=== PATIENT | female | born 1955 | race Caucasian/White ===

== ENCOUNTER 2020-11-25 10:03 | Emergency (ER) | payer OTHER ==
[~2020-11-25] VITALS: Ht 162.6 cm; Wt 58.5 kg
[2020-11-25 10:14] VITALS: BP 128/62
[2020-11-25] MEDS ORDERED: CEPH500C2 PO (10:25)
[2020-11-25] MEDS ORDERED: CIPR5DRO EACHEYE (10:25)
== END 2020-11-25 10:42 | disposition home or self-care (01) ==
LOC: ER 10:14
DX: H00.012 Hordeolum externum right lower eyelid (principal); I10 Essential (primary) hypertension